=== PATIENT | female | born 1975 | race Caucasian/White ===

== ENCOUNTER 2017-12-10 18:57 | Emergency (ER) | payer BC ==
[~2017-12-10] VITALS: Ht 167.6 cm; Wt 100.0 kg
[~2017-12-10 18:57] MED LIST: CEFU1TAB43 PO; CELE40TA PO; HYDR200T42 PO; LEVO175T2 PO; PRED-1 PO; TOPI100 PO; TREX15TA PO; VITA100020 IJ; ZITH500T PO
[2017-12-10 19:02] VITALS: BP 156/88; PULSE 95; RESP 16; TEMP 98.5; O2SAT 99
--- NOTE | 2017-12-10 20:42 | RADRPT ---
EXAM DATE/TIME: 12/10/2017 19:34 [facility] COMPARISON: No previous studies available for comparison. INDICATIONS : Cough. MEDICAL HISTORY : Rheumatoid arthritis. SURGICAL HISTORY : None. ENCOUNTER: Initial ACUITY: 3 days PAIN SCORE: 0/10 LOCATION: Bilateral chest FINDINGS: PA and lateral views of the chest demonstrate the lungs to be symmetrically aerated without evidence of mass, infiltrate or effusion. The cardiomediastinal contours are unremarkable. Osseous structure s are intact. CONCLUSION: 1. No active disease. [id number] in superior vena cava. Moses Flores MD on December 10, 2017 at 20:38 Board Certified Radiologist. This report was verified electronically.
--- NOTE | 2017-12-10 21:17 | PD ---
HPI Chief Complaint: Cold / Flu Symptoms Time Seen by Provider: 21:12 Travel History International Travel<30 days: No Contact w/Intl Traveler<30days: No Traveled to known affect area: No History of Present Illness HPI 42-year-old female with history of RA, currently receiving Remicade infusions, presents to emergency department for evaluation. Patient states she has been having cough and chest congestion. She has been feeling more weak and tired as of the last [address] Espinosa, her infusion is today who did not do the Remicade infusion but started her on Levaquin. She states since taking the Levaquin she has vomited and been unable to keep any water down. She states she easily gets dehydrated. Denies any abdominal pain. Reports generalized body aches. She has no other symptoms to report. PFSH Past Medical History Anemia: Yes Arthritis: Yes (rheumatoid) Blood Disorders: Yes (pernisious anemia) Anxiety: Yes Cancer: No Cardiovascular Problems: No High Cholesterol: Yes Diminished Hearing: No Genitourinary: No Headaches: Yes (migraine type) Immune Disorder: Yes (r/a thyroid) Implanted Vascular Access Dvce: Yes Musculoskeletal: Yes (ra) Neurologic: Yes (migraines) Reproductive: No Respiratory: Yes (occasional bronchitis) Migraines: Yes Thyroid Disease: Yes ?: Not LMP: had ablation : 2 Para: 2 Past Surgical History Body Medical Devices: total knee Section: Yes Joint Replacement: Yes (RIGHT KNEE) Tonsillectomy: Yes Other Surgery: Yes (r knee surgery x7,r,wrist rthumb, , tonsillectomy) Social History Alcohol Use: No Tobacco Use: No Substance Use: No Allergies-Medications (Allergen,Severity, Reaction): Coded Allergies: latex (Unverified Allergy, Severe, Rash, 12/10/17) Reported Meds & Prescriptions Reported Meds & Active Scripts Active Zofran Odt (Ondansetron Odt) 4 Mg Tab 4 Mg SL Q6HR PRN Reported Calcium + D3 (Calcium Carbonate-Cholecalciferol) 600-200 Mg-Unit Tab 1 Tab PO BID Folic Acid 0.4 Mg Tab 400 Mcg PO DAILY Propranolol (Propranolol HCl) 40 Mg Tab 40 Mg PO Q12HR Cymbalta DR (Duloxetine HCl) 60 Mg Capdr 60 Mg PO DAILY Topamax (Topiramate) 100 Mg Tab 100 Mg PO DAILY Synthroid (Levothyroxine Sodium) 175 Mcg Tab 175 Mcg PO DAILY Remicade Inj (Infliximab) 100 Mg Inj Review of Systems Except as stated in HPI: all other systems reviewed are Neg Physical Exam Narrative GENERAL: Well-nourished female patient, in no acute distress. SKIN: Focused skin assessment warm/dry. HEAD: Atraumatic. Normocephalic. EYES: Pupils equal and round. No scleral icterus. No injection or drainage. ENT: No nasal bleeding or discharge. Mucous membranes pink and moist. NECK: Trachea midline. No JVD. CARDIOVASCULAR: Elevated rate and rhythm. No murmur appreciated. RESPIRATORY: No accessory muscle use. Clear to auscultation. Breath sounds equal bilaterally. Right anterior chest port GASTROINTESTINAL: Abdomen soft, non-tender, nondistended. Hepatic and splenic margins not palpable. MUSCULOSKELETAL: No obvious deformities. No clubbing. No cyanosis. No edema. NEUROLOGICAL: Awake and alert. No obvious cranial nerve deficits. Motor grossly within normal limits. Normal speech. PSYCHIATRIC: Appropriate mood and affect; insight and judgment normal. Data Data Last Documented VS Vital Signs Date Time Temp Pulse Resp B/P (MAP) Pulse Ox O2 Delivery O2 Flow Rate FiO2 12/11/17 00:07 148/80 (102) 98 12/10/17 19:02 98.5 95 16 Room Air Orders Orders Complete Blood Count With Diff (12/10/17 19:10) Comprehensive Metabolic Panel (12/10/17 19:10) Lipase (12/10/17 19:10) Urinalysis - C+S If Indicated (12/10/17 19:10) Chest, Pa & Lat (12/10/17 ) Influenzae A/B Antigen (12/10/17 19:10) Sodium Chlor 0.9% 1000 Ml Inj (Ns 1000 M (12/10/17 21:30) Ondansetron Inj (Zofran Inj) (12/10/17 21:30) Sodium Chlor 0.9% 1000 Ml Inj (Ns 1000 M (12/10/17 23:00) Ed Discharge Order (12/10/17 23:29) Heparin Central Flush (Heparin Central F (12/10/17 23:45) Labs Laboratory Tests Test 12/10/17 21:42 12/10/17 23:10 White Blood Count 3.4 TH/MM3 Red Blood Count 3.89 MIL/MM3 Hemoglobin 12.6 GM/DL Hematocrit 37.5 % Mean Corpuscular Volume 96.4 FL Mean Corpuscular Hemoglobin 32.5 PG Mean Corpuscular Hemoglobin Concent 33.7 % Red Cell Distribution Width 13.5 % Platelet Count 198 TH/MM3 Mean Platelet Volume 6.9 FL Neutrophils (%) (Auto) 67.1 % Lymphocytes (%) (Auto) 15.5 % Monocytes (%) (Auto) 11.5 % Eosinophils (%) (Auto) 5.2 % Basophils (%) (Auto) 0.7 % Neutrophils # (Auto) 2.3 TH/MM3 Lymphocytes # (Auto) 0.5 TH/MM3 Monocytes # (Auto) 0.4 TH/MM3 Eosinophils # (Auto) 0.2 TH/MM3 Basophils # (Auto) 0.0 TH/MM3 CBC Comment DIFF FINAL Differential Comment Blood Urea Nitrogen 9 MG/DL Creatinine 0.78 MG/DL Random Glucose 91 MG/DL Total Protein 7.2 GM/DL Albumin 3.9 GM/DL Calcium Level 8.7 MG/DL Alkaline Phosphatase 60 U/L Aspartate Amino Transf (AST/SGOT) 29 U/L Alanine Aminotransferase (ALT/SGPT) 36 U/L Total Bilirubin 0.4 MG/DL Sodium Level 142 MEQ/L Potassium Level 3.6 MEQ/L Chloride Level 112 MEQ/L Carbon Dioxide Level 21.1 MEQ/L Anion Gap 9 MEQ/L Estimat Glomerular Filtration Rate 81 ML/MIN Lipase 125 U/L Urine Color YELLOW Urine Turbidity HAZY Urine pH 6.5 Urine Specific [place] 1.011 Urine Protein NEG mg/dL Urine Glucose (UA) NEG mg/dL Urine Ketones 10 mg/dL Urine Occult Blood NEG Urine Nitrite NEG Urine Bilirubin NEG Urine Urobilinogen LESS THAN 2.0 MG/DL Urine Leukocyte Esterase NEG Urine RBC 3 /hpf Urine WBC 1 /hpf Urine Squamous Epithelial Cells 21 /hpf Urine Bacteria RARE /hpf Urine Mucus FEW /lpf Microscopic Urinalysis Comment CULT NOT INDICATED MDM Medical Decision Making Medical Screen Exam Complete: Yes Emergency Medical Condition: Yes Medical Record Reviewed: Yes Differential Diagnosis Pneumonia versus influenza versus common cold versus viral syndrome Narrative Course 42-year-old female presents to the emergency department for evaluation. Patient does have a lowered immune response due to her current medication therapy. She does. Nontoxic. Her vital signs are stable. Lab work is complete Laboratory Tests Test 12/10/17 21:42 12/10/17 23:10 White Blood Count 3.4 TH/MM3 Red Blood Count 3.89 MIL/MM3 Hemoglobin 12.6 GM/DL Hematocrit 37.5 % Mean Corpuscular Volume 96.4 FL Mean Corpuscular Hemoglobin 32.5 PG Mean Corpuscular Hemoglobin Concent 33.7 % Red Cell Distribution Width 13.5 % Platelet Count 198 TH/MM3 Mean Platelet Volume 6.9 FL Neutrophils (%) (Auto) 67.1 % Lymphocytes (%) (Auto) 15.5 % Monocytes (%) (Auto) 11.5 % Eosinophils (%) (Auto) 5.2 % Basophils (%) (Auto) 0.7 % Neutrophils # (Auto) 2.3 TH/MM3 Lymphocytes # (Auto) 0.5 TH/MM3 Monocytes # (Auto) 0.4 TH/MM3 Eosinophils # (Auto) 0.2 TH/MM3 Basophils # (Auto) 0.0 TH/MM3 CBC Comment DIFF FINAL Differential Comment Blood Urea Nitrogen 9 MG/DL Creatinine 0.78 MG/DL Random Glucose 91 MG/DL Total Protein 7.2 GM/DL Albumin 3.9 GM/DL Calcium Level 8.7 MG/DL Alkaline Phosphatase 60 U/L Aspartate Amino Transf (AST/SGOT) 29 U/L Alanine Aminotransferase (ALT/SGPT) 36 U/L Total Bilirubin 0.4 MG/DL Sodium Level 142 MEQ/L Potassium Level 3.6 MEQ/L Chloride Level 112 MEQ/L Carbon Dioxide Level 21.1 MEQ/L Anion Gap 9 MEQ/L Estimat Glomerular Filtration Rate 81 ML/MIN Lipase 125 U/L Urine Color YELLOW Urine Turbidity HAZY Urine pH 6.5 Urine Specific [place] 1.011 Urine Protein NEG mg/dL Urine Glucose (UA) NEG mg/dL Urine Ketones 10 mg/dL Urine Occult Blood NEG Urine Nitrite NEG Urine Bilirubin NEG Urine Urobilinogen LESS THAN 2.0 MG/DL Urine Leukocyte Esterase NEG Urine RBC 3 /hpf Urine WBC 1 /hpf Urine Squamous Epithelial Cells 21 /hpf Urine Bacteria RARE /hpf Urine Mucus FEW /lpf Microscopic Urinalysis Comment CULT NOT INDICATED Chest x-rays without acute cardiopulmonary disease. Influenza screen is negative. I have encouraged the patient to continue the Levaquin as directed. I'll prescribe her Zofran to help with her nausea vomiting would also encourage eating prior to taking the medication. She verbalizes understanding and will follow-up with her primary care provider. She agrees to return immediately with any acute worsening of symptoms. Diagnosis Primary Impression: Upper respiratory infection Qualified Codes: J06.9 - Acute upper respiratory infection, unspecified Referrals: Primary Care Physician Patient Instructions: General Instructions, Upper Respiratory Infection (ED) Additional Instructions: Continue antibiotic as already prescribed. Take it until it is all gone Rest Maintain adequate oral hydration Return immediately with any acute worsening of symptoms Med/Other Pt SpecificInfo: Prescription(s) given Scripts Ondansetron Odt (Zofran Odt) 4 Mg Tab 4 MG SL Q6HR Y for Nausea/Vomiting, #15 TAB 0 Refills Prov: Park Gee 12/10/17 Disposition: 01 DISCHARGE HOME Condition: Stable Park Gee Dec 10, 2017 21:16
[2017-12-10] MEDS ORDERED: SYNT175T PO (21:22)
[2017-12-10] MEDS ORDERED: TOPI100 PO (21:22)
[2017-12-10] MEDS ORDERED: CALC600T10 PO (21:22)
[2017-12-10] MEDS ORDERED: PROP40TA3 PO (21:22)
[2017-12-10] MEDS ORDERED: FOLI400T PO (21:22)
[2017-12-10] MEDS ORDERED: CYMB60CA PO (21:22)
[2017-12-10] MEDS ORDERED: INFL100P (21:22)
[2017-12-10] MEDS ORDERED: SODIUM CHLOR 0.9% 1000 ML INJ 1,000 ML IV ONE ×2 (21:30→23:00)
[2017-12-10] MEDS ORDERED: ONDANSETRON HCL 4 MG/2 ML VIAL IV PUSH ONE (21:30)
[2017-12-10 22:20] LABS: AUTOMATED NEUTROPHIL # 2.3 TH/MM3 (1.8-7.7); BASOPHIL % 0.7 % (0.0-2.0); EOSINOPHIL # 0.2 TH/MM3 (0-0.4); EOSINOPHIL % 5.2 % (0.0-4.0); HEMATOCRIT 37.5 % (35.0-46.0); HEMOGLOBIN 12.6 GM/DL (11.6-15.3); LYMPH % 15.5 % (9.0-44.0); LYMPHOCYTE # 0.5 TH/MM3 (1.0-4.8); MEAN CELL VOLUME 96.4 FL (80.0-100.0); MEAN CORPUSCULAR HEMOGLOBIN 32.5 PG (27.0-34.0); MEAN CORPUSCULAR HGB CONC 33.7 % (32.0-36.0); MEAN PLATELET VOLUME 6.9 FL (7.0-11.0); MONO % 11.5 % (0.0-8.0); MONOCYTE # 0.4 TH/MM3 (0-0.9); NEUT % 67.1 % (16.0-70.0); PLATELET COUNT 198 TH/MM3 (150-450); RED BLOOD COUNT 3.89 MIL/MM3 (4.00-5.30); RED CELL DISTRIBUTION WIDTH 13.5 % (11.6-17.2); WHITE BLOOD COUNT 3.4 TH/MM3 (4.0-11.0)
[2017-12-10 22:26] LABS: ALBUMIN 3.9 GM/DL (3.4-5.0); AST (GOT) 29 U/L (15-37); BICARBONATE 21.1 MEQ/L (21.0-32.0); BLOOD UREA NITROGEN 9 MG/DL (7-18); CALCIUM 8.7 MG/DL (8.5-10.1); CHLORIDE 112 MEQ/L (98-107); CREATININE 0.78 MG/DL (0.50-1.00); GLOMERULAR FILTRATION RATE 81 ML/MIN (>89); GLUCOSE,RANDOM 91 MG/DL (74-106); LIPASE 125 U/L (73-393); SODIUM (NA) 142 MEQ/L (136-145)
[2017-12-10 22:28] LABS: ALT (GPT) 36 U/L (10-53)
[2017-12-10 22:29] LABS: ALKALINE PHOSPHATASE 60 U/L (45-117); TOTAL BILIRUBIN ADULT 0.4 MG/DL (0.2-1.0); TOTAL PROTEIN 7.2 GM/DL (6.4-8.2)
[2017-12-10 23:30] LABS: BACTERIA, URINE RARE /hpf; BILIRUBIN, URINE NEG (NEG); BLOOD, URINE NEG (NEG); GLUCOSE,URINE NEG (NEG); KETONE, URINE 10 mg/dL (NEG); MUCUS URINE FEW /lpf (OCC); NITRITE,URINE NEG (NEG); PH, URINE 6.5 (5.0-8.5); SQUAMOUS EPITHELIAL CELL URINE 21 /hpf (0-5); URINE COLOR YELLOW (YELLW/STRAW); URINE LEUKOCYTE ESTERASE NEG (NEG)
[2017-12-10] MEDS ORDERED: ZOFR4TAB3 SL (23:32)
[2017-12-11 00:07] VITALS: BP 148/80
== END 2017-12-11 00:11 | disposition home or self-care (01) ==
LOC: NEPD 18:57
DX: J06.9 Acute upper respiratory infection, unspecified (principal); M06.9 Rheumatoid arthritis, unspecified; E78.00 Pure hypercholesterolemia, unspecified; F41.9 Anxiety disorder, unspecified; E07.9 Disorder of thyroid, unspecified; Z79.899 Other long term (current) drug therapy; Z86.2 Personal history of diseases of the blood and blood-forming organs and certain disorders involving the immune mechanism; Z87.09 Personal history of other diseases of the respiratory system; Z91.040 Latex allergy status
CPT/HCPCS: 71046; 80053; 81001; 83690; 85025; 87804; 96361; 96374; 99284; J1642; J2405; J7030

== ENCOUNTER 2018-02-08 21:52 | Emergency (ER) | payer BC ==
[~2018-02-08] VITALS: Ht 167.6 cm; Wt 100.0 kg
[~2018-02-08 21:52] MED LIST changes: +CALC600T10 PO; -CEFU1TAB43 PO; -CELE40TA PO; +CYMB60CA PO; +FOLI400T PO; -HYDR200T42 PO; +INFL100P; -LEVO175T2 PO; -PRED-1 PO; +PROP40TA3 PO; +SYNT175T PO; -TREX15TA PO; -VITA100020 IJ; -ZITH500T PO; +ZOFR4TAB3 SL
[2018-02-08 21:55] VITALS: BP 159/102; PULSE 86; RESP 16; TEMP 97.4; O2SAT 97
[2018-02-08] MEDS ORDERED: METH2.5T SQ (22:38)
[2018-02-08] MEDS ORDERED: PRED10 PO (22:38)
[2018-02-08] MEDS ORDERED: AMBI5TAB PO (22:38)
[2018-02-08] MEDS ORDERED: TRAM50TA PO (22:38)
[2018-02-08] MEDS ORDERED: IMIT100T PO (22:38)
[2018-02-08] MEDS ORDERED: CYCL10TA PO (22:38)
[2018-02-08] MEDS ORDERED: BIOT10TA PO (22:38)
--- NOTE | 2018-02-08 23:07 | PD ---
HPI Chief Complaint: Pain: Acute or Chronic Time Seen by Provider: 22:49 Travel History International Travel<30 days: No Contact w/Intl Traveler<30days: No Traveled to known affect area: No History of Present Illness HPI Patient started to notice distended chest veins look like varicose veins to her , she has never had this before. She states that she has had a report on the right side for the past 4 months. She stated that she started to develop the dose distended veins just over yesterday, now today she started to notice some edema to her right upper extremity as well as her right side of her neck and right chest wall. Patient states that she has allergies to sulfa, latex and abatacept Past medical history significant for hypothyroidism, migraines, hypercholesterolemia, bronchitis, C-sections, rheumatoid arthritis, anxiety, anemia, of the pernicious type and has a right sided port placement for RA treatments PFS Past Medical History Anemia: Yes Arthritis: Yes (rheumatoid) Blood Disorders: Yes (pernisious anemia) Anxiety: Yes Cancer: No Cardiovascular Problems: No High Cholesterol: Yes Diminished Hearing: No Genitourinary: No Headaches: Yes (migraine type) Immune Disorder: Yes (r/a thyroid) Implanted Vascular Access Dvce: Yes Musculoskeletal: Yes (ra) Neurologic: Yes (migraines) Reproductive: No Respiratory: Yes (bronchitis) Immunizations Current: Yes Migraines: Yes Thyroid Disease: Yes ?: Not : 2 Para: 2 Past Surgical History Body Medical Devices: total knee Section: Yes Joint Replacement: Yes (RIGHT KNEE) Tonsillectomy: Yes Other Surgery: Yes (r knee surgery x7,r,wrist rthumb, , tonsillectomy , PORT PLACEMENT) Social History Alcohol Use: No Tobacco Use: No Substance Use: No Allergies-Medications (Allergen,Severity, Reaction): Coded Allergies: Sulfa (Sulfonamide Antibiotics) (Verified Allergy, Severe, 02/08/18) abatacept (Verified Allergy, Severe, 02/08/18) latex (Unverified Allergy, Severe, Rash, 02/08/18) Reported Meds & Prescriptions Reported Meds & Active Scripts Active Reported Biotin 10 Mg Tab 10 Mg PO DAILY Imitrex (Sumatriptan Succinate) 100 Mg Tab 100 Mg PO ONCE PRN If a satisfactory response has not been obtained at 2 hours, a second dose may be administered Ambien (Zolpidem Tartrate) 5 Mg Tab 5 Mg PO HS PRN Prednisone 10 Mg Tab 10 Mg PO DAILY Methotrexate 2.5 Mg Tab 0.8 Mg SQ Q7D Tramadol (Tramadol HCl) 50 Mg Tab 100 Mg PO TID PRN Flexeril (Cyclobenzaprine HCl) 10 Mg Tab 10 Mg PO HS Calcium + D3 (Calcium Carbonate-Cholecalciferol) 600-200 Mg-Unit Tab 1 Tab PO BID Folic Acid 0.4 Mg Tab 400 Mcg PO DAILY Propranolol (Propranolol HCl) 40 Mg Tab 40 Mg PO Q12HR Cymbalta DR (Duloxetine HCl) 60 Mg Capdr 60 Mg PO DAILY Topamax (Topiramate) 100 Mg Tab 100 Mg PO DAILY Synthroid (Levothyroxine Sodium) 175 Mcg Tab 175 Mcg PO DAILY Remicade Inj (Infliximab) 100 Mg Inj Review of Systems Except as stated in HPI: all other systems reviewed are Neg Physical Exam Narrative GENERAL: SKIN: Warm and dry. HEAD: Atraumatic. Normocephalic. EYES: Pupils equal and round. No scleral icterus. No injection or drainage. ENT: No nasal bleeding or discharge. Mucous membranes pink and moist. NECK: Trachea midline. No JVD. CARDIOVASCULAR: Regular rate and rhythm. Patient has a port over her right chest wall area surrounding all around it are distended veins on her chest wall which have become very prominent and noticeable. There is also some mild edema to the right side of her face and right pectoralis region as well as the right brachial region. No cellulitic changes, RESPIRATORY: No accessory muscle use. Clear to auscultation. Breath sounds equal bilaterally. GASTROINTESTINAL: Abdomen soft, non-tender, nondistended. Hepatic and splenic margins not palpable. MUSCULOSKELETAL: Extremities without clubbing, cyanosis, or edema. No obvious deformities. NEUROLOGICAL: Awake and alert. No obvious cranial nerve deficits. Motor grossly within normal limits. Five out of 5 muscle strength in the arms and legs. Normal speech. PSYCHIATRIC: Appropriate mood and affect; insight and judgment normal. Data Data Last Documented VS Vital Signs Date Time Temp Pulse Resp B/P (MAP) Pulse Ox O2 Delivery O2 Flow Rate FiO2 02/08/18 22:28 20 02/08/18 21:55 97.4 86 159/102 (121) 97 Room Air Orders Orders Complete Blood Count With Diff (02/08/18 23:01) Comprehensive Metabolic Panel (02/08/18 23:01) B-Type Natriuretic Peptide (02/08/18 23:01) Prothrombin Time / Inr (Pt) (02/08/18 23:01) Act Partial Throm Time (Ptt) (02/08/18 23:01) Lipase (02/08/18 23:01) Thyroid Stimulating Hormone (02/08/18 23:01) Ct Thorax/ Chest W Iv Contrast (02/08/18 ) Iohexol 350 Inj (Omnipaque 350 Inj) (02/09/18 00:39) Labs Laboratory Tests Test 02/08/18 23:40 White Blood Count 7.5 TH/MM3 Red Blood Count 3.86 MIL/MM3 Hemoglobin 12.1 GM/DL Hematocrit 35.3 % Mean Corpuscular Volume 91.6 FL Mean Corpuscular Hemoglobin 31.4 PG Mean Corpuscular Hemoglobin Concent 34.3 % Red Cell Distribution Width 15.6 % Platelet Count 224 TH/MM3 Mean Platelet Volume 7.4 FL Neutrophils (%) (Auto) 62.8 % Lymphocytes (%) (Auto) 23.7 % Monocytes (%) (Auto) 9.0 % Eosinophils (%) (Auto) 3.9 % Basophils (%) (Auto) 0.6 % Neutrophils # (Auto) 4.7 TH/MM3 Lymphocytes # (Auto) 1.8 TH/MM3 Monocytes # (Auto) 0.7 TH/MM3 Eosinophils # (Auto) 0.3 TH/MM3 Basophils # (Auto) 0.0 TH/MM3 CBC Comment DIFF FINAL Differential Comment Prothrombin Time 10.7 SEC Prothromb Time International Ratio 1.1 RATIO Activated Partial Thromboplast Time 26.8 SEC Blood Urea Nitrogen 13 MG/DL Creatinine 0.97 MG/DL Random Glucose 90 MG/DL Total Protein 7.4 GM/DL Albumin 3.8 GM/DL Calcium Level 8.8 MG/DL Alkaline Phosphatase 54 U/L Aspartate Amino Transf (AST/SGOT) 15 U/L Alanine Aminotransferase (ALT/SGPT) 22 U/L Total Bilirubin 0.3 MG/DL Sodium Level 142 MEQ/L Potassium Level 3.3 MEQ/L Chloride Level 110 MEQ/L Carbon Dioxide Level 23.1 MEQ/L Anion Gap 9 MEQ/L Estimat Glomerular Filtration Rate 62 ML/MIN B-Type Natriuretic Peptide 22 PG/ML Lipase 153 U/L Thyroid Stimulating Hormone 3rd Gen 1.310 uIU/ML MDM Medical Decision Making Medical Screen Exam Complete: Yes Emergency Medical Condition: Yes Medical Record Reviewed: Yes Differential Diagnosis Superior vena cava syndrome versus outlet syndrome versus port thrombosis versus mass-effect Narrative Course Cognition profile is within normal limits CBC shows no leukocytosis, no anemia, normal platelet count, and no left shift Electrolytes are all within normal limits, normal kidney liver and pancreatic functions. Negative beta natruretic peptide. Normal TSH screening test Patient is signed out to next provider pending CT scan results and further evaluation and disposition for possible obstructive syndrome outlet syndrome versus superior vena cava syndrome or port thrombosis Diagnosis Primary Impression: dilated chest wall veins Patient Instructions: General Instructions Additional Instructions: keep appointment with Dr Stallworth for additional testing Disposition: 01 DISCHARGE HOME Condition: Stable Hoang Perez MD Feb 08, 2018 23:07
[2018-02-09 00:05] LABS: INTERNATIONAL NORMALIZED RATIO 1.1 RATIO; PROTHROMBIN TIME - PATIENT 10.7 SEC (9.8-11.6)
[2018-02-09 00:07] LABS: AUTOMATED NEUTROPHIL # 4.7 TH/MM3 (1.8-7.7); BASOPHIL % 0.6 % (0.0-2.0); EOSINOPHIL # 0.3 TH/MM3 (0-0.4); EOSINOPHIL % 3.9 % (0.0-4.0); HEMATOCRIT 35.3 % (35.0-46.0); HEMOGLOBIN 12.1 GM/DL (11.6-15.3); LYMPH % 23.7 % (9.0-44.0); LYMPHOCYTE # 1.8 TH/MM3 (1.0-4.8); MEAN CELL VOLUME 91.6 FL (80.0-100.0); MEAN CORPUSCULAR HEMOGLOBIN 31.4 PG (27.0-34.0); MEAN CORPUSCULAR HGB CONC 34.3 % (32.0-36.0); MEAN PLATELET VOLUME 7.4 FL (7.0-11.0); MONOCYTE # 0.7 TH/MM3 (0-0.9); NEUT % 62.8 % (16.0-70.0); PLATELET COUNT 224 TH/MM3 (150-450); RED BLOOD COUNT 3.86 MIL/MM3 (4.00-5.30); RED CELL DISTRIBUTION WIDTH 15.6 % (11.6-17.2); WHITE BLOOD COUNT 7.5 TH/MM3 (4.0-11.0)
[2018-02-09 00:13] LABS: ALBUMIN 3.8 GM/DL (3.4-5.0); ALT (GPT) 22 U/L (10-53); AST (GOT) 15 U/L (15-37); BICARBONATE 23.1 MEQ/L (21.0-32.0); BLOOD UREA NITROGEN 13 MG/DL (7-18); CALCIUM 8.8 MG/DL (8.5-10.1); CHLORIDE 110 MEQ/L (98-107); CREATININE 0.97 MG/DL (0.50-1.00); GLOMERULAR FILTRATION RATE 62 ML/MIN (>89); GLUCOSE,RANDOM 90 MG/DL (74-106); SODIUM (NA) 142 MEQ/L (136-145)
[2018-02-09 00:23] LABS: ALKALINE PHOSPHATASE 54 U/L (45-117); TOTAL BILIRUBIN ADULT 0.3 MG/DL (0.2-1.0); TOTAL PROTEIN 7.4 GM/DL (6.4-8.2)
[2018-02-09] MEDS ORDERED: IOHEXOL 350 MG/ML 10 ML VIAL (for RAD DIAG) IVCONTRAST ONE (00:39)
--- NOTE | 2018-02-09 00:50 | RADRPT ---
EXAM DATE/TIME: 02/09/2018 00:34 [facility] COMPARISON: No previous studies available for comparison. INDICATIONS : Right upper chest pain; possible vena cava syndrome. IV CONTRAST: 100 cc Omnipaque 350 (iohexol) IV RADIATION DOSE: 16.96 CTDIvol (mGy) MEDICAL HISTORY : Rheumatoid arthritis. Anemia SURGICAL HISTORY : section. Right knee surgery ENCOUNTER: Initial ACUITY: 1 day PAIN SCALE: 6/10 LOCATION: Right chest TECHNIQUE: Volumetric scanning of the chest was performed. Using automated exposure control and adjustment of t he mA and/or kV according to patient size, radiation dose was kept as low as reasonably achievable to obtain optimal diagnostic quality images. DICOM format image data is available electronically for review and comparison. Follow-up recommendations for detected pulmonary nodules are based at a minimum on nodule size and pa tient risk factors according to Fleischner Society Guidelines. FINDINGS: LUNGS: There is no consolidation or pneumothorax. No concerning pulmonary nodule is visualized. PLEURA: There is no pleural thickening or pleural effusion. MEDIASTINUM: The heart and great vessels demonstrate no acute abnormality. There is no mediastinal or hilar lymph adenopathy. SVC is normal. AXILLAE: Within normal limits. No lymphadenopathy. SKELETAL: Within normal limits for patient age. MISCELLANEOUS: The visualized upper abdominal organs demonstrate no acute abnormality. Right-sided port with tip in the SVC. CONCLUSION: Unremarkable CT chest. Carl Hernandez MD on February 09, 2018 at 0:47 Board Certified Radiologist. This report was verified electronically.
== END 2018-02-09 01:29 | disposition home or self-care (01) ==
LOC: NEPD 21:52
DX: I86.8 Varicose veins of other specified sites (principal); E03.9 Hypothyroidism, unspecified; E78.00 Pure hypercholesterolemia, unspecified; M06.9 Rheumatoid arthritis, unspecified; F41.9 Anxiety disorder, unspecified; D51.0 Vitamin B12 deficiency anemia due to intrinsic factor deficiency; Z79.899 Other long term (current) drug therapy; Z88.2 Allergy status to sulfonamides; Z88.8 Allergy status to other drugs, medicaments and biological substances
CPT/HCPCS: 71260; 80053; 83690; 83880; 84443; 85025; 85610; 85730; 99284; Q9967